=== PATIENT | female | born 1970 | race Two or more races ===

== ENCOUNTER 2022-12-19 18:43 | Emergency (ER) | payer MEDICAID, OTHER ==
[~2022-12-19] VITALS: Ht 157.5 cm; Wt 70.4 kg
[2022-12-19] MEDS ORDERED: IBUP800T26 PO (21:35)
[2022-12-19] MEDS ORDERED: IBUPROFEN 800 MG TAB PO ONE (21:45)
[2022-12-20 01:46] VITALS: BP 120/60
== END 2022-12-20 01:51 | disposition home or self-care (01) ==
LOC: ER 18:43
DX: S01.01XD Laceration without foreign body of scalp, subsequent encounter (principal); Z90.710 Acquired absence of both cervix and uterus; W18.00XD Striking against unspecified object with subsequent fall, subsequent encounter

== ENCOUNTER 2023-03-09 00:53 | Emergency (ER) | payer MEDICAID ==
[~2023-03-09 00:53] MED LIST: IBUP-1455 PO
== END 2023-03-09 02:19 | disposition left against medical advice (07) ==
LOC: ER 00:53 → EEVIPCON 00:53 → ER 02:19
DX: F41.9 Anxiety disorder, unspecified (principal); Z53.21 Procedure and treatment not carried out due to patient leaving prior to being seen by health care provider